=== PATIENT | male | born 1990 | race African-American/Black ===

== ENCOUNTER 2018-11-25 12:25 | Emergency (ER) | payer SELFPAY ==
--- NOTE | 2018-11-25 13:34 | EDM.PDOC ---
ED HPI GENERAL MEDICAL PROBLEM - General Chief Complaint: ENT Problem Stated Complaint: MOUTH COMPLAINT,HEADACHE Time Seen by Provider: 11/25/18 12:41 Source of Information: Reports: Patient, RN Notes Reviewed History Limitations: Reports: No Limitations - History of Present Illness INITIAL COMMENTS - FREE TEXT/NARRATIVE: Patient is a 28-year-old male who presents to the ED for the evaluation of mouth sores and a headache. The patient notes that these have been present for about one week now. He notes a recent move to [place] from [place], and this has been providing him extra stress in his life. He further notes that his brothers recently gotten troublesome want for Brian and he was close with his brother, so this has aggravated distress. He notes that his mother kicked him out of her house, and he is now having to reside with his girlfriend at this time. Patient states that he has sores on the upper outer gumline and roof of his mouth. He states that eating really anything at all seems to aggravate the sores, he notes he is a cigarette smoker, and also smokes marijuana daily. He notes he is a one pack per day smoker. He notes that the smoking tends to aggravate the pain as well. He has been using some Orajel and an oral mouthwash twice a day and this helps relieve the pain for a little bit, but the pain returns at about 2 or 3 hours. He has been taking some ibuprofen and Excedrin for his headache and this also seems to help. Patient notes that the headache seems to worsen when the mouth pain worsens. Oral/Mouth Pain Score (Numeric/FACES): 4 Headache Pain Score (Numeric/FACES): 8 - Related Data Allergies Allergy/AdvReac Type Severity Reaction Status Date / Time No Known Allergies Allergy Verified 11/25/18 12:44 Home Meds: Home Meds Chlorhexidine Gluconate [Chlorhexidine Gluconate 0.12% Rinse] 10 ml MM BID #1 bottle 11/25/18 [Rx] Past Medical History Musculoskeletal History: Reports: Other (See Below) Other Musculoskeletal History: right arm surgery dues to glass window cut Social & Family History - Tobacco Use Smoking Status *Q: Current Every Day Smoker Years of Tobacco use: 12 Packs/Tins Daily: 1 - Caffeine Use Caffeine Use: Reports: Soda - Recreational Drug Use Recreational Drug Use: Yes Recreational Drug Type: Reports: Marijuana/Hashish Other Recreational Drug Type: 2 blunts per day ED ROS ENT - Review of Systems Review Of Systems: See Below Constitutional: Denies: Fever, Chills HEENT: Reports: Other (mouth sores) Respiratory: Reports: No Symptoms Cardiovascular: Reports: No Symptoms Endocrine: Reports: No Symptoms GI/Abdominal: Reports: No Symptoms : Reports: No Symptoms Musculoskeletal: Reports: No Symptoms Skin: Reports: No Symptoms Neurological: Reports: Headache Psychiatric: Reports: No Symptoms Hematologic/Lymphatic: Reports: No Symptoms Immunologic: Reports: No Symptoms ED EXAM, ENT - Physical Exam Exam: See Below Exam Limited By: No Limitations General Appearance: Alert, WD/WN, No Apparent Distress Eye Exam: Bilateral Eye: EOMI, Normal Inspection, PERRL Ears: Normal External Exam, Normal Canal, Hearing Grossly Normal, Normal TMs Nose: Normal Inspection Mouth/Throat: Normal Inspection, Normal Gums, Normal Lips, Normal Teeth, Oral Ulcers (noted along the upper outer gum line on the Right side mainly, there is an area of redness/irritation noted to the roof of his mouth as well.) Head: Atraumatic, Normocephalic Neck: Normal Inspection Respiratory/Chest: No Respiratory Distress, Lungs Clear, Normal Breath Sounds, No Accessory Muscle Use, Chest Non-Tender Cardiovascular: Normal Peripheral Pulses, Regular Rate, Rhythm, No Murmur GI/Abdominal: Normal Bowel Sounds, Soft, Non-Tender, No Distention, No Mass Extremities: Normal Inspection, Normal Capillary Refill Neurological: Alert, Oriented, Normal Cognition, No Motor/Sensory Deficits Psychiatric: Normal Affect, Normal Mood Skin: Warm, Dry, Intact, Normal Color, No Rash Course - Vital Signs Last Recorded V/S: Last Vital Signs Temp 96.8 F 11/25/18 12:41 Pulse 94 11/25/18 12:41 Resp 20 11/25/18 12:41 BP 137/99 H 11/25/18 12:41 Pulse Ox 100 11/25/18 12:41 - Re-Assessments/Exams Free Text/Narrative Re-Assessment/Exam: 11/25/18 13:40 Patient presents to the ED for the evaluation of mouth sores in the headache. I do believe that his headaches are tension headaches and increased stress in his life and also the ulcers in his mouth. These are most consistent with aphthous ulcers in nature. We'll provide the patient was some chlorhexidine mouthwash, I did find an up-to-date article that states B12 supplementation sometimes can help relieve symptoms. So we'll recommend that, and other general recommendations. Patient does not have a primary care provider, so he will be recommended to obtain one for further care. Departure - Departure Time of Disposition: 13:29 Disposition: Home, Self-Care 01 Condition: Fair Clinical Impression: Mouth sores - Discharge Information *PRESCRIPTION DRUG MONITORING PROGRAM REVIEWED*: No *COPY OF PRESCRIPTION DRUG MONITORING REPORT IN PATIENT CONOR: No Prescriptions: Chlorhexidine Gluconate [Chlorhexidine Gluconate 0.12% Rinse] 10 ml MM BID #1 bottle Instructions: Canker Sores Referrals: PCP,None [Primary Care Provider] - Forms: ED Department Discharge Additional Instructions: You were evaluated in the ED for your mouth sores. These are most likely aphthous ulcers (canker sores). You were prescribed a mouth rinse to alleviate some symptoms. Please swish 10mL PO BID until the bottle is gone. Swish at least 30 seconds. You may take 600 mg Ibuprofen Q6H for further pain relief. There is also evidence that shows taking vitamin B12 (this is an over the counter vitamin) may be beneficial in the treatment of canker sores. You may obtain this at any retailer. Take 1000 micrograms daily. Recommend that you try to stay away from any sort of aggravating factors. If smoking makes the pain worse, recommend that you try to stop smoking to help provide relief. You should think about getting a primary care provider, to provide you further management and watch over your general health and well-being. Our [facility] clinic number is [phone], the [place] clinic number is [phone]. Any sort of family practice provider would be able to provide you with the services. Please return to the ED if your symptoms change or worsen.
== END 2018-11-25 13:58 | disposition home or self-care (01) ==
LOC: JD.ED 12:25
DX: K13.79 Other lesions of oral mucosa (principal); F17.210 Nicotine dependence, cigarettes, uncomplicated
CPT/HCPCS: 99282

== ENCOUNTER 2019-04-27 17:51 | Emergency (ER) | payer SELFPAY ==
[2019-04-27] MEDS ORDERED: Acetaminophen/HYDROcodone 325-5 MG Tab PO ONE (18:35)
[2019-04-27] MEDS ORDERED: Ketorolac 60 MG/2 ML SDV IM ONE (18:35)
--- NOTE | 2019-04-27 19:32 | EDM.PDOC ---
ED HPI GENERAL MEDICAL PROBLEM - General Chief Complaint: Back Pain or Injury Stated Complaint: BACK PAIN Time Seen by Provider: 04/27/19 18:23 Source of Information: Reports: Patient, RN Notes Reviewed - History of Present Illness INITIAL COMMENTS - FREE TEXT/NARRATIVE: 28 yr old male had onset of R back pain this past AM getting out of car. Continues to have severe R low back pain worse with motion, better to sit or lie still with some radiation of pain to R buttock but now further down leg. Right Back Pain Score (Numeric/FACES): 9 - Related Data Allergies Allergy/AdvReac Type Severity Reaction Status Date / Time No Known Allergies Allergy Verified 04/27/19 18:05 Home Meds: Home Meds Chlorhexidine Gluconate [Chlorhexidine Gluconate 0.12% Rinse] 10 ml MM BID #1 bottle 11/25/18 [Rx] Acetaminophen/HYDROcodone [[place] 325-5 MG] 1 tab PO Q6H #7 tablet 04/27/19 [Rx] Naproxen [Naprosyn] 500 mg PO Q12HR #14 tab 04/27/19 [Rx] Past Medical History - Past Health History Medical/Surgical History: Denies Medical/Surgical History Musculoskeletal History: Reports: Other (See Below) Other Musculoskeletal History: right arm surgery dues to glass window cut Social & Family History - Tobacco Use Smoking Status *Q: Current Every Day Smoker Years of Tobacco use: 5 Packs/Tins Daily: 0.5 - Caffeine Use Caffeine Use: Reports: Soda - Recreational Drug Use Recreational Drug Use: No ED ROS GENERAL - Review of Systems Review Of Systems: See Below Constitutional: Denies: Fever, Chills, Diaphoresis HEENT: Reports: No Symptoms Respiratory: Reports: No Symptoms Cardiovascular: Reports: No Symptoms GI/Abdominal: Reports: No Symptoms Musculoskeletal: Reports: Back Pain Skin: Reports: No Symptoms Neurological: Denies: Numbness, Tingling, Weakness ED EXAM,LOWER BACK PAIN/INJURY - Physical Exam Exam: See Below General Appearance: Alert, Mild Distress Head: Atraumatic Neck: Supple Respiratory/Chest: No Respiratory Distress Back Exam: Paraspinal Tenderness (R low back). No: CVA Tenderness (L), CVA Tenderness (R), Vertebral Tenderness Extremities: Normal Inspection, Normal Range of Motion Neurological: Alert, No Motor/Sensory Deficits Skin Exam: Warm, Dry Course - Vital Signs Last Recorded V/S: Last Vital Signs Temp 99.1 F 04/27/19 18:03 Pulse 95 04/27/19 18:03 Resp 18 04/27/19 18:03 BP 97/62 04/27/19 18:03 Pulse Ox 100 04/27/19 18:03 - Orders/Labs/Meds Meds: Medications Discontinued Medications Generic Name Dose Route Start Last Admin Trade Name Prachi PRN Reason Stop Dose Admin Hydrocodone Bitart/Acetaminophen 1 tab 04/27/19 18:35 04/27/19 18:51 Commerce 325-5 Mg PO 04/27/19 18:36 1 tab ONETIME ONE Administration Ketorolac Tromethamine 60 mg 04/27/19 18:35 04/27/19 18:52 Toradol IM 04/27/19 18:36 60 mg ONETIME ONE Administration Departure - Departure Time of Disposition: 19:27 Disposition: Home, Self-Care 01 Condition: Fair Clinical Impression: Low back strain - Discharge Information Prescriptions: Naproxen [Naprosyn] 500 mg PO Q12HR #14 tab Acetaminophen/HYDROcodone [[place] 325-5 MG] 1 tab PO Q6H #7 tablet Instructions: Low Back Sprain Referrals: PCP,None [Primary Care Provider] - Forms: ED Department Discharge Additional Instructions: Rest back, no heavy lifting, alternate ice and heat to area of pain right low back as needed. Start Naprosyn 500 mg twice daily tomorrow morning and take that for 1 week or until pain is resolved. You can take Tylenol in addition up to 3 times daily or hydrocodone for a day or 2 if needed for severe pain. Do not take hydrocodone and Tylenol at the same time. Do not drive when taking hydrocodone. Follow up clinic if this is not much better within 3 to 5 days as expected. Sepsis Event Note - Evaluation Sepsis Screening Result: No Definite Risk - Focused Exam Date Exam was Performed: 04/28/19 Time Exam was Performed: 18:12
== END 2019-04-27 19:42 | disposition home or self-care (01) ==
LOC: JD.ED 17:51
DX: S39.012A Strain of muscle, fascia and tendon of lower back, initial encounter (principal); F17.210 Nicotine dependence, cigarettes, uncomplicated; X58.XXXA Exposure to other specified factors, initial encounter
CPT/HCPCS: 96372; 99283; A9270; J1885

== ENCOUNTER 2019-08-07 15:15 | Emergency (ER) | payer SELFPAY ==
--- NOTE | 2019-08-07 15:54 | EDM.PDOC ---
ED HPI GENERAL MEDICAL PROBLEM - General Chief Complaint: General Stated Complaint: PT HAD TEMP NEEDS COVID TEST TO GO TO WORK Time Seen by Provider: 08/07/19 15:33 Source of Information: Reports: Patient, RN Notes Reviewed History Limitations: Reports: No Limitations - History of Present Illness INITIAL COMMENTS - FREE TEXT/NARRATIVE: Patient is a 29-year-old male who presents to the ED for a simple evaluation to return to work. Patient states that on Thursday, he was feeling a little under the weather, and told his boss that he had a fever, so he could go to his girlfriend's daughters baseball game in [place]. He states that he did have a slight temperature at that time, and just some general malaise otherwise he feels well today, he has no shortness of breath, no cough no fever/chills, no abdomen pain, no nausea/vomiting/diarrhea, no other sick-like symptoms. Patient states that his boss is requiring a work note and a COVID test in order for him to return to work. - Related Data Allergies Allergy/AdvReac Type Severity Reaction Status Date / Time No Known Allergies Allergy Verified 08/07/19 15:37 Home Meds: Home Meds . [No Known Home Meds] 08/07/19 [History] Past Medical History - Past Health History Medical/Surgical History: Denies Medical/Surgical History - Past Surgical History Musculoskeletal Surgical History: Reports: Other (See Below) (right arm surgery d/t glass laceration) Social & Family History - Tobacco Use Smoking Status *Q: Never Smoker Second Hand Smoke Exposure: No - Caffeine Use Caffeine Use: Reports: Coffee - Recreational Drug Use Recreational Drug Use: No ED ROS GENERAL - Review of Systems Review Of Systems: Comprehensive ROS is negative, except as noted in HPI. ED EXAM, GENERAL - Physical Exam Exam: See Below Exam Limited By: No Limitations General Appearance: Alert, WD/WN, No Apparent Distress Eye Exam: Bilateral Eye: EOMI, Normal Inspection, PERRL Ears: Normal External Exam Respiratory/Chest: No Respiratory Distress, Lungs Clear, Normal Breath Sounds, No Accessory Muscle Use, Chest Non-Tender Cardiovascular: Normal Peripheral Pulses, Regular Rate, Rhythm, No Murmur Peripheral Pulses: 3+: Radial (L), Radial (R) GI/Abdominal: Normal Bowel Sounds, Soft, Non-Tender, No Distention, No Mass Extremities: Normal Inspection, Normal Capillary Refill Neurological: Alert, Oriented, Normal Cognition, No Motor/Sensory Deficits Psychiatric: Normal Affect, Normal Mood Skin Exam: Warm, Dry, Intact, Normal Color, No Rash Course - Vital Signs Last Recorded V/S: Last Vital Signs Temp 97.8 F 08/07/19 15:32 Pulse 95 08/07/19 15:32 Resp 16 08/07/19 15:32 BP 115/85 08/07/19 15:32 Pulse Ox 100 08/07/19 15:32 - Re-Assessments/Exams Free Text/Narrative Re-Assessment/Exam: 08/07/19 15:52 Patient presents to the ED simply because he needs a coronavirus test, and a work note to return to work. Patient was pretty honest and states that he lied to get out of work on Thursday for the most part, so he could attend the game. Nonetheless patient will have a COVID screen done, and he will have a work note to reflect time off get results of the coronavirus testing. Patient was made aware that this could take a couple days, and that he would have to self quarantine until then. Departure - Departure Time of Disposition: 15:53 Disposition: Home, Self-Care 01 Condition: Good Clinical Impression: Encounter to obtain excuse from work - Discharge Information *PRESCRIPTION DRUG MONITORING PROGRAM REVIEWED*: No *COPY OF PRESCRIPTION DRUG MONITORING REPORT IN PATIENT CONOR: No Referrals: PCP,None [Primary Care Provider] - Forms: ED Department Discharge, ED Return to Work/School Form Additional Instructions: You were seen in the ER today for a COVID screen and a work note.. At this time we did test you for coronavirus. Swabs are sent from this facility on a daily basis, at 2:30 PM, you should expect up to 3-5 business days for positive or negative results. However you may receive results earlier than this. We are doing our best to call as soon as we get results from the [place] dept. of Health. It is recommended at this time that you go home and self quarantine during this time frame and try to limit exposure to other as much as possible. Please return to the ER at any time if your symptoms change or worsen. Sepsis Event Note (ED) - Evaluation Sepsis Screening Result: No Definite Risk - Focused Exam Vital Signs: Vital Signs Temp Pulse Resp BP Pulse Ox 08/07/19 15:32 97.8 F 95 16 115/85 100
== END 2019-08-07 16:05 | disposition home or self-care (01) ==
LOC: JD.ED 15:15
DX: Z02.79 Encounter for issue of other medical certificate (principal)
CPT/HCPCS: 99282; 99283; U0002

== ENCOUNTER 2020-12-18 11:59 | Emergency (ER) | payer OTHER ==
--- NOTE | 2020-12-18 13:26 | CR ---
Left foot: 4 views of the left foot were obtained. Comparison: No previous study is available. Small radiopacity is seen on the skin within the first toe. Joint spaces are maintained. No acute fracture, dislocation or other bony abnormality is seen. Impression: 1. Small superficial foreign body on the skin within the first toe. 2. No acute osseous abnormality is appreciated. Diagnostic code #2
--- NOTE | 2020-12-18 13:26 | CR ---
Left elbow: 4 views of the left elbow were obtained. Comparison: No previous elbow study. Slight cortical disruption seen within the radial neck suspicious for nondisplaced radial neck fracture. No additional fracture or other abnormality is appreciated. Impression: 1. Findings suspicious for nondisplaced radial neck fracture. 2. Left elbow study is otherwise unremarkable. Diagnostic code #3
--- NOTE | 2020-12-18 14:00 | EDM.PDOC ---
ED HPI GENERAL MEDICAL PROBLEM - General Chief Complaint: Trauma Stated Complaint: fell off 16ft roof Time Seen by Provider: 12/18/20 12:13 Source of Information: Reports: Patient History Limitations: Reports: No Limitations - History of Present Illness INITIAL COMMENTS - FREE TEXT/NARRATIVE: The patient presents with let arm pain and left foot pain after falling 16 feet. He was on a roof securing some metal fabricio and there was some dust and he slipped and fell about 16 feet. He did not hit his head or hurt his neck. He landed on his left arm and left leg. He has pain to the left elbow and mild pain to the left foot. He has no neck pain, headache, chest pain, abdominal pain, right arm or right leg pain. Onset: Sudden Duration: Minutes: Location: Reports: Upper Extremity, Left (elbow), Lower Extremity, Left (foot) Quality: Reports: Sharp Severity: Moderate Improves with: Reports: Immobilization Associated Symptoms: Reports: No Other Symptoms Left Arm Pain Score (Numeric/FACES): 10 - Related Data Allergies Allergy/AdvReac Type Severity Reaction Status Date / Time No Known Allergies Allergy Verified 12/18/20 12:15 Home Meds: Home Meds . [No Known Home Meds] 08/07/19 [History] Past Medical History - Past Health History Medical/Surgical History: Denies Medical/Surgical History Musculoskeletal History: Reports: Other (See Below) Other Musculoskeletal History: right arm surgery dues to glass window cut - Past Surgical History Musculoskeletal Surgical History: Reports: Other (See Below) Social & Family History - Tobacco Use Tobacco Use Status *Q: Former Tobacco User Used Tobacco, but Quit: Yes Month/Year Tobacco Last Used: November 2020 - Caffeine Use Caffeine Use: Reports: Soda - Recreational Drug Use Recreational Drug Use: Yes Drug Use in Last 12 Months: Yes Recreational Drug Type: Reports: Marijuana/Hashish, Methamphetamine Recreational Drug Use Frequency: Not Used In Over 1 Month Review of Systems - Review of Systems Review Of Systems: See Below Constitutional: Reports: No Symptoms Eyes: Reports: No Symptoms Ears: Reports: No Symptoms Nose: Reports: No Symptoms Mouth/Throat: Reports: No Symptoms Respiratory: Reports: No Symptoms Cardiovascular: Reports: No Symptoms GI/Abdominal: Reports: No Symptoms Genitourinary: Reports: No Symptoms Musculoskeletal: Reports: Other (Left elbow pain and left foot pain) ED EXAM, GENERAL - Physical Exam Exam: See Below Exam Limited By: No Limitations General Appearance: Alert, No Apparent Distress Ears: Normal External Exam Nose: Normal Inspection Head: Atraumatic, Normocephalic Neck: Normal Inspection, Supple, Non-Tender Respiratory/Chest: No Respiratory Distress, Lungs Clear, Normal Breath Sounds Cardiovascular: Regular Rate, Rhythm, No Edema, No Murmur GI/Abdominal: Soft, Non-Tender, No Organomegaly, No Mass Back Exam: Normal Inspection Extremities: Other (Pain upon palpaton with edema to the left elbow. Good sensation and pulses distally. Pain upon palpation to the left heel. Good sensation and pulses distally.) Course - Vital Signs Last Recorded V/S: Last Vital Signs Temp 97.7 F 12/18/20 12:26 Pulse 85 12/18/20 14:00 Resp 16 12/18/20 14:00 BP 120/78 12/18/20 14:00 Pulse Ox 100 12/18/20 14:00 - Orders/Labs/Meds Orders: Active Orders 24 hr Category Date Time Status Durable Medical Equipment for Discharge [DME for Oth 12/18/20 14:56 Ordered Discharge] [COMM] Stat Labs: Laboratory Tests 12/18/20 12/18/20 Range/Units 14:33 14:50 Urine Opiates Screen Negative (GIERLG=325) Ur Buprenorphine Scrn Negative (CUTOFF=10) Ur Oxycodone Screen Negative (YPA5WT=537) Urine Methadone Screen Negative (ILF7DB=053) Ur Propoxyphene Screen Negative (LQVTTD=969) Ur Barbiturates Screen Negative (HJRLLE=480) Ur Tricyclics Screen Negative (GLTXXD=440) Ur Phencyclidine Scrn Negative (CUTOFF=25) Ur Amphetamine Screen Negative (DPXMFT=358) U Methamphetamines Scrn Negative (DJDFQJ=565) U Benzodiazepines Scrn Negative (PZKTNB=652) U Cocaine Metab Screen Negative (RJDFES=681) U Marijuana (THC) Screen Presumptive positive H (CUTOFF=50) Ethyl Alcohol 0.00 (0.00) gm% - Re-Assessments/Exams Free Text/Narrative Re-Assessment/Exam: 12/18/20 14:02 I ordered x-ray of his left elbow and left foot. The x-ray of his left foot looks good. The x-ray of his elbow shows a nondisplaced radial neck fracture. 12/18/20 16:01 He wanted me to do a drug and alcohol screen. I ordered them. His alcohols is 0. He was presumptive positive for marijuana. He admits to using less then a month ago. Departure - Departure Time of Disposition: 16:05 Disposition: Home, Self-Care 01 Condition: Good Clinical Impression: Fall Qualifiers: Encounter type: initial encounter Qualified Code(s): W19.XXXA - Unspecified fall, initial encounter Fracture of radial neck, left, closed Qualifiers: Encounter type: initial encounter Fracture alignment: nondisplaced Qualified Code(s): S52.135A - Nondisplaced fracture of neck of left radius, initial encounter for closed fracture - Discharge Information *PRESCRIPTION DRUG MONITORING PROGRAM REVIEWED*: Not Applicable *COPY OF PRESCRIPTION DRUG MONITORING REPORT IN PATIENT CONOR: Not Applicable Referrals: PCP,None [Primary Care Provider] - Carlitos Sifuentes MD [Physician] - 1 Week Forms: ED Department Discharge Additional Instructions: Ice your foot and elbow for 15 minutes 3 times per day for 2 days. Take tylenol or motrin as needed for pain. Keep the splint on until you see Dr Sifuentes within a week. Please return if you are worse. Sepsis Event Note (ED) - Evaluation Sepsis Screening Result: No Definite Risk - Focused Exam Vital Signs: Vital Signs Temp Pulse Resp BP BP Pulse Ox 12/18/20 14:00 85 16 120/78 100 12/18/20 12:26 97.7 F 77 20 101/74 12/18/20 12:15 98.4 F 112/68 - My Orders Last 24 Hours: My Active Orders 12/18/20 14:56 Durable Medical Equipment for Discharge [DME for Discharge] [COMM] Stat - Assessment/Plan Last 24 Hours: My Active Orders 12/18/20 14:56 Durable Medical Equipment for Discharge [DME for Discharge] [COMM] Stat
== END 2020-12-18 16:21 | disposition home or self-care (01) ==
LOC: JD.ED 11:59
DX: S52.135A Nondisplaced fracture of neck of left radius, initial encounter for closed fracture (principal); Z87.891 Personal history of nicotine dependence; W17.89XA Other fall from one level to another, initial encounter
CPT/HCPCS: 36415; 73080-26-LT; 73080-LT; 73630-26-LT; 73630-LT; 80306; 80307; 99283; 99284